=== PATIENT | female | born 1990 | race Asian ===

== ENCOUNTER → 2016-11-13 | Outpatient (CLI) | payer OTHER ==
[2016-11-13 17:39] LABS: BASOPHIL % 0.4 % (0-2); PLATELET COUNT 232 x10^3mcL (130-400); RED CELL DISTRIBUTION WIDTH 14.1 % (11.5-14.5)
[2016-11-13 17:58] LABS: ALBUMIN 4.2 g/dL (3.4-5.0); ALKALINE PHOSPHATASE 57 U/L (46-116); ALT/SGPT 24 U/L (14-59); AST/SGOT 18 U/L (15-37); BILIRUBIN TOTAL 0.5 mg/dL (0.20-1.00); CALCIUM 8.9 mg/dL (8.5-10.1); CARBON DIOXIDE 27.8 mmol/L (21-32); CHLORIDE SERUM 103 mmol/L (98-107); CREATININE SERUM 0.8 mg/dL (0.6-1.0); GFR1 > 60 mL/min; GLUCOSE SERUM 103 mg/dL (74-106); POTASSIUM SERUM 3.9 mmol/L (3.5-5.1); SODIUM SERUM 137 mmol/L (136-145); TOTAL PROTEIN, SERUM 7.7 g/dL (6.4-8.2)
== END | disposition home or self-care (01) ==
LOC: US 17:06
PROVIDERS: Family Medicine
PROC: BU4CZZZ Ultrasonography of Uterus and Ovaries (ICD-10-PCS; principal; 2016-11-13)
DX: N93.9 Abnormal uterine and vaginal bleeding, unspecified (principal)
CPT/HCPCS: 82670